=== PATIENT | female | born 1965 | race Caucasian/White ===

== ENCOUNTER 2016-04-25 11:27 | Emergency (ER) | payer OTHER ==
[~2016-04-25] VITALS: Ht 167.6 cm; Wt 72.7 kg
[~2016-04-25 11:27] MED LIST: ALPR0.5T PO; LEVO50TA6 PO; LISI10TA2 PO; ZLP5T PO
[2016-04-25 11:31] VITALS: BP 187/93; PULSE 88; RESP 16; O2SAT 98
--- NOTE | 2016-04-25 11:51 | ED.REPORT ---
HPI-General Illness Date of Service Apr 25, 2016 ED Provider: The patient is a 50 year old female with history of hypertension and anxiety, who was sent to the emergency department from urgent care for elevated blood pressure (201/116). Yesterday she was fatigued, dizzy and had blurred vision, tingling in her left hand, and a headache. She describes her head pain as "pressure." She took her blood pressure yesterday and it was at 180/97, this was after she took her blood pressure medication. Today she has noticed some tightness in her chest, increased anxiety, and neck pain. She has not taken her blood pressure medication today. She has had intermittent chest pain in the past that has been previously attributed to increased stress. She reports increased stress in her life recently. Over the last few days she has also noticed cramping lower abdominal pain and nausea. She denies fever, chills, cough, congestion, sore throat, shortness of breath, vomiting, diarrhea, bloody/ tarry stools, dysuria, hematuria, numbness or weakness. Nursing Notes Stated Complaint: HIGH BLOOD PRESSURE/BLURRED VISION Chief Complaint: Chest Pain Nursing Notes Reviewed: Yes Allergies: Coded Allergies: latex (Verified Allergy, Mild, RASH, 04/25/16) Scheduled Bupropion (Bupropion) 75 Mg Tablet 75 MG PO BID Fluoxetine (Fluoxetine) 20 Mg Tablet 20 MG PO DAILY 2 caps Levothyroxine (Levothyroxine) 50 Mcg Tablet 50 MCG PO DAILY Lisinopril (Lisinopril) 10 Mg Tablet 40 MG PO DAILY Propranolol ER (Propranolol ER) 80 Mg Cap.sa.24h 80 MG PO DAILY Scheduled PRN Alprazolam (Xanax) 0.5 Mg Tablet 0.5 MG PO QID PRN PRN For Anxiety Zolpidem (Ambien) 5 Mg Tab 10 MG PO HS PRN PRN For Insomnia General Time Seen by MD: 11:51 Chief Complaint Other (high blood pressure) Hx Obtained From: Patient Arrived By: Walk-in Sudden in Onset?: Yes Onset Occurred: Yesterday Symptom Duration: Since onset Location: : Chest Quality: Painful Severity: Current: Mild Severity: Maximum: Mild Recent Healthcare: No recent hospitalization, Recent doctor visit Similar Sx Previous: Yes Past Medical History Past Medical History Hypertension Anxiety Family History Noncontributory Smoking History Never Smoker Social History Other Social History: Local resident Ambulatory Status Independent Review of Systems +elevated blood pressure, tingling in her left fingers Full Review of Systems Constitutional: Reports: Fatigue, Denies: Chills, Fever Eyes: Reports: Blurred bilateral Ears / Nose / Throat: Denies: Nasal congestion, Sore throat Respiratory: Denies: Non-productive cough, Shortness of breath Cardiovascular: Reports: Chest pain GI: Reports: Abdominal pain, Nausea, Denies: Bloody/tarry stool, Diarrhea, Hematemesis, Hematochezia, Melena, Vomiting Female: Denies: Dysuria, Hematuria, Urinary frequency, Urinary urgency, Urination decreased, Urination increased Musculoskeletal: Reports: Neck pain Neurologic: Reports: Dizziness, Headache, Vision change, Denies: Focal weakness, Numbness Psychiatric: Reports: Anxiety, Stress Complete sys rev & neg: except as marked. Physical Exam Vital Signs Vital Signs Date Time Temp Pulse Resp B/P Pulse Ox O2 Delivery O2 Flow Rate FiO2 04/25/16 14:26 75 157/77 99 Room Air 04/25/16 12:56 70 168/78 04/25/16 12:26 70 165/106 04/25/16 11:31 36.0 88 16 187/93 98 Room Air Initial VS: Reviewed, Vital signs abnormal Head / Eyes: Atraumatic, Normocephalic, PERRL ENT: Mucous membranes moist, Conjunctiva normal, No scleral icterus Respiratory: Breath sounds normal, Clear to auscultation, No respiratory distress Cardiovascular: Regular rate & rhythm, Heart sounds normal, Intact distal pulses Abdomen / GI: Soft, Non-tender, No guarding, No rebound, No distention Lymphatic: No lymphadenopathy Extremities: Vascular intact, Neuro intact, No swelling, No tenderness Skin: Warm, Dry, No cyanosis Psychiatric: Mood/affect normal, Behavior normal, Normal thought content General/Constitutional: Awake, Alert, Cooperative Neck: Atraumatic, Supple, No meningismus, Full range of motion, No swelling, Non-tender, No midline vertebral tend Neurologic: Oriented X3, Speech NL, No motor deficits, No sensory deficits, CN II - XII intact, Cerebellar NL, Memory NL Interpretation & Diagnostics Lab Results Interpretation Result Diagram: 04/25/16 1140 04/25/16 1140 Test 04/25/16 11:40 White Blood Count 5.0th/mm3 (3.8-10.1) Red Blood Count 3.92mil/mm3 (3.90-5.20) Hemoglobin 12.9g/dL (12.0-15.6) Hematocrit 37.8% (35.0-46.0) Mean Corpuscular Volume 96.4fL (81-100) Mean Corpuscular Hemoglobin 32.9pg (27.0-35.0) Mean Corpuscular Hemoglobin Concent 34.1% (32.0-37.0) Red Cell Distribution Width 12.8% (12.3-15.4) Platelet Count 224bil/L (150-400) Neutrophils (%) (Auto) 59.7% (40-74) Lymphocytes (%) (Auto) 29.1% (14-46) Monocytes (%) (Auto) 10.0% (4-12) Eosinophils (%) (Auto) 0.8% (0-5) Basophils (%) (Auto) 0.2% (0-3) Prothrombin Time 10.1sec (8.1-12.5) Prothromb Time International Ratio 0.95ratio Sodium Level 138mEq/L (134-144) Potassium Level 3.4mEq/L (3.5-5.2) Chloride Level 101mEq/L (97-108) Carbon Dioxide Level 24mmol/L (18-29) Blood Urea Nitrogen 7mg/dL (6-24) Creatinine 0.49mg/dL (0.57-1.00) Estimat Glomerular Filtration Rate 190mL/min (>59) Glucose Level 102mg/dL (60-99) Calcium Level 8.3mg/dL (8.5-10.1) Magnesium Level 1.7mg/dL (1.6-2.6) Total Bilirubin 0.3mg/dL (0.0-1.2) Aspartate Amino Transf (AST/SGOT) 20U/L (0-50) Alanine Aminotransferase (ALT/SGPT) 10U/L (0-32) Alkaline Phosphatase 33U/L (25-150) Troponin T 0.010ug/L (0.0-0.011) Total Protein 6.3g/dL (6.4-8.4) Albumin 4.1g/dL (3.4-5.0) Hold Campbell Top Tube Received (Received) ECG Interpretation ECG Interpretation: Normal sinus rhythm with a rate of 66 bpm Normal intervals Normal axis No acute ST or T wave changes Time: 11:50 Interpreted by: ED physician X-Ray Chest Interpretation Chest Xray Interpretation: IMPRESSION: No acute pulmonary process. Dictated by: Airam Avalos M.D. on 04/25/2016 at 13:48 Interpretation / Wet Read by: Interpret - Radiologist Re-Eval/Medical Decision Med Decision/Clinical Course The patient presents with hypertension without taking her lisinopril. After being given Ativan alone her blood pressure came down significantly. There is no sign of end organ damage. She was told to follow with her primary care physician for blood pressure management. She has had chest pain is with her anxiety before she has had the pain for greater than 24 hours with negative troponin and normal EKG therefore she is effectively ruled out for SC. Source of Hx: Old records Time of Eval: 14:01 Re-Evaluation/Progress Note: Rechecked the patient. Discussed plan for discharge. All questions were addressed. Counseled Regarding: Diagnosis, Lab results, Need for follow-up, When/why to return to ED Discharge & Departure Primary Impression: Poorly controlled blood pressure Additional Impression: Anxiety Disposition: Home Discharge Condition All VS Reviewed: Yes Condition: Stable Additional Instructions: Thank you for entrusting us with your care today. I do no see any signs of any organ damage. Your increased blood pressure may be related to the stress you are having. Make a followup appointment with your regular doctor to discuss the possible need for medication adjustments. Please return to the emergency department for any new or concerning symptoms. Referrals: Facundo Tyler MD (PCP) Bro Attestation Portions of this note were transcribed by Catrachita Saha. I, Dr. Kothari personally performed the history, physical exam and medical decision-making; I reviewed and confirmed the accuracy of the information in the transcribed note. Signed by: Bro Ruiz, 04/25/2016 at 1415. copies to: Facundo Tyler MD, Jena M MD Apr 25, 2016 11:51 Catrachita Saha Apr 25, 2016 12:05
[2016-04-25] MEDS ORDERED: PROP80CA2 PO (12:01)
[2016-04-25] MEDS ORDERED: BUPR75TA10 PO (12:01)
[2016-04-25] MEDS ORDERED: FLUO20TA28 PO (12:01)
[2016-04-25 12:08] LABS: BASOPHILS % (AUTO) 0.2 % (0-3); EOSINOPHILS % (AUTO) 0.8 % (0-5); Mean Corpuscular Hemoglobin 32.9 pg (27.0-35.0); Mean Corpuscular Volume 96.4 fL (81-100); NEUTROPHILS % (AUTO) 59.7 % (40-74); Platelet Count 224 bil/L (150-400)
[2016-04-25] MEDS ORDERED: Ketorolac 15 mg/mL Inj IVPUSH ONE (12:10)
[2016-04-25] MEDS ORDERED: Lisinopril 40 Tablet PO ONE (12:10)
[2016-04-25 12:14] LABS: INR 0.95 ratio
[2016-04-25 12:22] LABS: TROPONIN T 0.01 ug/L (0.0-0.011)
[2016-04-25 12:26] VITALS: BP 165/106; PULSE 70
[2016-04-25 12:33] LABS: Magnesium 1.7 mg/dL (1.6-2.6)
[2016-04-25 12:56] VITALS: BP 168/78; PULSE 70
--- NOTE | 2016-04-25 13:50 | DRSVH ---
PROCEDURE: X-RAY CHEST ONE VIEW, PORTABLE ([id number]) INDICATIONS: cp TECHNIQUE: One view of the chest was acquired. COMPARISON: [facility], , CHEST 1 VIEW, 04/25/2015, 12:37. FINDINGS: Surgical changes and devices: None. Lungs and pleura: No pleural effusions or pneumothorax. Lungs are clear. Mediastinum: Mediastinal contours appear normal. Heart size is normal. Bones and chest wall: No suspicious bony lesions. Overlying soft tissues appear unremarkable. IMPRESSION: No acute pulmonary process. Dictated by: Airam Avalos M.D. on 04/25/2016 at 13:48 Approved by: Airam Avalos M.D. on 04/25/2016 at 13:48
[2016-04-25 14:26] VITALS: BP 157/77; PULSE 75; O2SAT 99
== END 2016-04-25 14:25 | disposition home or self-care (01) ==
LOC: SED 11:27
DX: I10 Essential (primary) hypertension (principal); F41.9 Anxiety disorder, unspecified; R53.83 Other fatigue; R42 Dizziness and giddiness; H53.8 Other visual disturbances; R20.2 Paresthesia of skin; R51 Headache; R07.89 Other chest pain; Z91.040 Latex allergy status
CPT/HCPCS: 36415; 71010; 80053; 82948; 83735; 84484; 85025; 85610; 96374; 96375; 99285; G0463; J1885; J2060